=== PATIENT | female | born 1945 | race Two or more races ===

== ENCOUNTER 2019-03-17 14:57 | Inpatient (IN) | payer MEDICARE ==
[2019-03-17] MEDS ORDERED: NALOXONE 0.4 MG/ML 1 ML VIAL IV PRN (21:55)
[2019-03-17] MEDS ORDERED: HYDROmorphone 0.5 MG/0.5 ML SYRINGE IVP PRN (21:57)
[2019-03-17] MEDS ORDERED: HYDROcodone/APAP 5-325MG 1 EACH TAB PO PRN (21:57)
[2019-03-17] MEDS ORDERED: ACETAMINOPHEN TAB 500 MG TAB PO PRN (21:57)
[2019-03-17] MEDS ORDERED: IPRATROPIUM-ALBUTEROL 3 ML NEB INHALATION PRN (21:58)
[2019-03-17] MEDS ORDERED: ALPRAZolam 0.25 MG TAB PO PRN (21:59)
[2019-03-17] MEDS ORDERED: TEMAZEPAM 15 MG CAP PO PRN (21:59)
--- NOTE | 2019-03-17 22:35 | XR ---
EXAM: XR Chest, 1 View CLINICAL HISTORY: ITS.REASON XR Reason: lung ca TECHNIQUE: Frontal view of the chest. COMPARISON: No relevant prior studies available. FINDINGS: Lungs: Complete opacification of the right hemithorax with elevation of the right hemidiaphragm and gastric bubble seen higher than its expected location. Lungs are clear. Left heart margin is obscured. Mediastinum and gladys are obscured. Trachea is grossly unremarkable. Pleural space: Unremarkable. No pneumothorax. Heart: See above. Mediastinum: Unremarkable. Bones/joints: Unremarkable. IMPRESSION: Opacification of the left hemithorax. Differential includes mass, pleural effusion, lung collapse or a combination these findings. Recommend chest CT for further evaluation.
[2019-03-17] MEDS: SODIUM CHLORIDE 0.9% 1,000 ML IV SCH (22:53)
--- NOTE | 2019-03-18 05:39 | HP ---
HISTORY AND PHYSICAL CHIEF COMPLAINTS: Shortness of breath and chest pain. HISTORY OF PRESENT ILLNESS: This 73-year-old woman with a past medical history of multiple medical problems including hypertension, history of COPD, being followed by Dr. Stratton in the outpatient setting is complaining of right-sided chest pain as well as some shortness of breath. Because of increased symptoms, the patient went to [facility]. The patient underwent a CAT scan of the chest which showed COPD with underlying emphysema and pulmonary hypertension and as well as a large left hilar mass with a contiguous mass extending into the left upper lobe and invading the subcarinal aspect to the mediastinum, measures up to approximately 7.3 cm encasing and narrowing of the left main pulmonary artery and proximal lobar arterial branches and cuts off the left mainstem bronchus and resultant complete left lung collapse with moderate to large left pleural effusion was also noted. Multiple 4 or 5 mm pulmonary nodules also noted on the right side. The patient admitted for further evaluation and treatment. There is no history of any fever, rigors. No history of headache, loss of consciousness or seizures at this time. I discussed the case with [facility] ER physician and the patient directly transferred to [facility] for further evaluation and treatment. Pulmonary consultation has been initiated. PAST MEDICAL HISTORY: Hypertension, history of nicotine dependence and history of COPD. MEDICATIONS: Medications are: 1. Norvasc 10 mg p.o. daily. 2. Diovan 160/25 mg p.o. daily. 3. Spiriva 1 puff daily. 4. Lopressor 100 mg p.o. ALLERGIES: Allergies are SULFA. FAMILY HISTORY: No history of heart disease or strokes in the family. SOCIAL HISTORY: Previous history of smoking. No history of current smoking or alcohol intake. REVIEW OF SYSTEMS: ENT: No diminished hearing or diminished vision. CARDIOVASCULAR SYSTEM: No angina RESPIRATORY SYSTEM: As mentioned earlier. GI: No nausea. : No dysuria. NERVOUS SYSTEM: No numbness or weakness. ALLERGY/IMMUNOLOGY: No asthma or hayfever. MUSCULOSKELETAL: As mentioned earlier. HEMATOLOGY/ONCOLOGY: No history of anemia. ENDOCRINE: No history of diabetes or hypothyroidism. CONSTITUTIONAL: As mentioned earlier. DERMATOLOGY: Negative. RHEUMATOLOGY: Negative. PSYCHIATRY: As mentioned earlier. PHYSICAL EXAMINATION: Patient is alert and oriented x3. Pulse is 64, blood pressure 136/76, respiration 20, temperature 98.3, pulse ox 93% on room air. HEENT: Conjunctivae normal. Oral mucosa moist. NECK: No jugular venous distention. No carotid bruit. No lymph node enlargement. CARDIOVASCULAR: S1, S2 muffled. RESPIRATORY: Breath sounds diminished at the bases. Bilateral scattered rhonchi and crackles. Bilateral expiratory rhonchi on left more than right with some markedly on the left side. ABDOMEN: Soft, nontender. No mass palpable. LEGS: No edema. No swelling. NERVOUS SYSTEM: Higher functions as mentioned. Moves all 4 limbs. No focal motor deficit. LYMPHATICS: No lymphadenopathy of the neck, axillae or groin. SKIN: No ulcer, rash or bleeding. JOINTS: No active deforming arthropathy. LABS: Labs are not available at this time. Previous labs are reviewed. ASSESSMENT: 1. Possible left hilar mass with extension. 2. Left lung collapse with left pleural effusion, rule out lung cancer. 3. History of nicotine dependence. 4. History of chronic obstructive pulmonary disease. 5. Hypertension. 6. Obesity with body mass index 39.1. RECOMMENDATIONS AND DISCUSSION: In this 73-year-old woman who presented with multiple complex medical issues, we will monitor the patient closely. Continue the current medications and symptomatic treatment. Will initiate extensive bronchodilator treatment. Otherwise, I would also recommend pulmonary consultation, possible bronchoscopy, biopsy. Repeat chest x- ray, repeat labs. Resume the home medications symptomatic treatment. Prognosis guarded because of multiple complex medical issues. Further recommendations to follow. A copy of dictation forwarded to Dr. Stratton who is the primary physician. MMODL / IJN: [id number] / MTDLeela
[2019-03-18 08:26] LABS: Basophils % (A) 0 %; Eosinophils # (A) 0.4 k/uL (0-0.7); Eosinophils % (A) 4 %; HCT 37.2 % (34.0-46.0); HGB 12.1 gm/dL (11.4-16.0); Lymphocytes # (A) 1.2 k/uL (1.0-4.8); Lymphocytes % (A) 11 %; MCH 29.4 pg (25.0-35.0); MCHC 32.6 g/dL (31.0-37.0); Mean Platelet Volume 6.8; Monocytes # (A) 0.7 k/uL (0-1.0); Monocytes % (A) 6 %; Neutrophils # (A) 7.9 k/uL (1.3-7.7); Neutrophils % (A) 76 %; Platelet Count 481 k/uL (150-450); RBC 4.13 m/uL (3.80-5.40); WBC 10.4 k/uL (3.8-10.6)
[2019-03-18 08:30] LABS: Anion Gap 6 mmol/L; Blood Urea Nitrogen 15 mg/dL (7-17); Calcium 9.1 mg/dL (8.4-10.2); Carbon Dioxide 32 mmol/L (22-30); Chloride 98 mmol/L (98-107); Glucose 107 mg/dL (74-99); Potassium 4.5 mmol/L (3.5-5.1); Sodium 136 mmol/L (137-145)
--- NOTE | 2019-03-18 08:33 | US ---
EXAMINATION TYPE: US chest DATE OF EXAM: 03/18/2019 COMPARISON: Radiograph 03/17/2019 CLINICAL HISTORY: 73-year-old female Markings for thoracentesis by pulmonary staff. SOB, pleural effu joey TECHNIQUE: Targeted ultrasound of the posterior lower bilateral hemithoraces. FINDINGS: EXAM MEASUREMENTS: Right Pleural Effusion pocket size: 0 cm Left Pleural Effusion pocket size: 7.8 cm Left skin surface to fluid distance: 4.4 cm Right side NOT marked Left side marked for possible thoracentesis outside the dept. Pulmonologists are able to review the images in the patient?s EMR. IMPRESSIONS: No pleural effusion on the right. Moderate sized pleural effusion on the left with marking performed. Note that the size of this effusion is not large enough to cause white out of the left chest. A conc urrent underlying process is suspected.
[2019-03-18] MEDS: amLODIPine 10 MG TAB PO SCH (09:19)
[2019-03-18] MEDS: HYDROCHLOROTHIAZIDE 25 MG TAB PO SCH (09:19)
[2019-03-18] MEDS: HEPARIN SODIUM,PORCINE 5,000 UNIT/ML 1 ML VIAL SQ SCH ×2 (09:19→21:34)
[2019-03-18] MEDS: PANTOPRAZOLE 40 MG TABLET PO SCH (09:19)
[2019-03-18] MEDS: METOPROLOL TARTRATE 50 MG TAB PO SCH ×2 (09:19→21:34)
[2019-03-18] MEDS: VALSARTAN 160 MG TAB PO SCH (09:20)
[2019-03-18] MEDS: IPRATROPIUM-ALBUTEROL 3 ML NEB INHALATION SCH ×3 (09:25→21:11)
--- NOTE | 2019-03-18 11:20 | P.CNPUL ---
History of Present Illness Consult date: 03/18/19 Requesting physician: Barbra Diaz Reason for consult: dyspnea, abnormal CXR/CT Chief complaint: Shortness of breath History of present illness: This a very pleasant 73-year-old female patient who follows with Dr. Stratton as her primary care physician. She has a history of hypertension.. She also has a significant smoking history for approximate 50 years but take quit 2 years ago. She does have significant COPD and follows with Dr. Larkin in our office for the same. FEV1 value of 49% of predicted. She's been on Trelegy and albuterol. She was last seen in January 2019. She states she has been having progressive shortness of breath over the past couple of months now. She presented to [facility] with complaints of some right-sided chest discomfort and shortness of breath. Computed tomography scan there revealed underlying emphysema pulmonary hypertension as well as a large left hilar mass with contiguous mass extending into the left upper lobe invading the subcarinal aspect of the mediastinum, measures up to 7.3 cm encasing and narrowing the left main pulmonary artery and proximal lobe arterial branches the left mainstem bronchus with resulting complete left lung collapse. There is also noted moderate to large pleural effusion. Scattered pulmonary nodules on the right side as well. She was transferred here for further evaluation and workup. Ultrasound of the left chest reveals a 7.8 cm fluid pocket. She is seen today in consultation on the oncology floor. She is awake and alert in no acute distress. She is maintaining good O2 saturations in the 90s on room air. She's afebrile. Hemodynamically stable. White count 10.4. Hemoglobin 12.1. Creatinine 0.69. She has been initiated on DuoNeb inhalations. She denies any significant weight loss. No hemoptysis. Review of Systems REVIEW OF SYSTEMS: CONSTITUTIONAL: Denies any recent significant weight loss or weight gain. EYES: Denies change in vision. EARS, NOSE, MOUTH, THROAT: Denies headaches, denies sore throat. CARDIOVASCULAR: Denies chest pain, palpitations or syncopal episodes. RESPIRATORY: Positive for shortness of breath, cough, congestion no hemoptysis. GASTROINTESTINAL: Denies change in appetite, denies abdominal pain GENITOURINARY: Denies hematuria, denies infections. MUSKULOSKELETAL: Denies pain, denies swelling. INTEGUMENTARY: Denies rash, denies eczema. NEUROLOGICAL: Denies recent memory loss, no recent seizure activity. PSYCHIATRIC: Denies anxiety, denies depression. HEMATOLOGIC/LYMPHATIC: Denies anemia, denies enlarged lymph nodes. Past Medical History Past Medical History: Hypertension History of Any Multi-Drug Resistant Organisms: None Reported Past Anesthesia/Blood Transfusion Reactions: No Reported Reaction Smoking Status: Former smoker - Past Family History Sister(s) Family Medical History: No Reported History Medications and Allergies Home Medications Medication Instructions Recorded Confirmed Type Metoprolol Tartrate [Lopressor] 100 mg PO BID 03/17/19 03/17/19 History Tiotropium 18 Mcg/Puff [Spiriva] 1 puff INHALATION RT-DAILY 03/17/19 03/17/19 History Valsartan/Hydrochlorothiazide 1 tab PO DAILY 03/17/19 03/17/19 History [Diovan Hct 160-25 mg Tablet] amLODIPine [Norvasc] 10 mg PO DAILY 03/17/19 03/17/19 History Allergies Allergy/AdvReac Type Severity Reaction Status Date / Time Sulfa (Sulfonamide Allergy Swelling Verified 03/17/19 19:16 Antibiotics) Physical Exam Vitals: Vital Signs Temp Pulse Pulse Resp BP Pulse Ox 03/18/19 09:40 80 03/18/19 09:31 76 03/18/19 04:46 98.3 F 76 18 156/70 96 03/17/19 22:17 20 03/17/19 21:55 94 L 03/17/19 20:39 98.3 F 64 20 136/76 93 L 03/17/19 18:25 98.2 F 66 20 155/96 97 Intake and Output 03/17/19 03/18/19 03/18/19 22:59 06:59 14:59 Intake Total 720 220 360 Balance 720 220 360 Intake: Intake, IV Titration 220 Amount Sodium Chloride 0.9% 1, 120 000 ml @ 20 mls/hr IV . Q24H [facility] Rx#:[id number] cefTRIAXone 1 gm In 100 Sodium Chloride 0.9% 50 ml @ 100 mls/hr IVPB Q24H [facility] Rx#:[id number] Oral 720 360 Other: Voiding Method Toilet # Voids 2 2 Weight 90.718 kg GENERAL EXAM: Alert, active, comfortable in no apparent distress. On room air. HEAD: Normocephalic. EYES: Normal reaction of pupils, equal size. NOSE: Clear with pink turbinates. THROAT: No erythema or exudates. NECK: No masses, no JVD. CHEST: No chest wall deformity. LUNGS: Diminished in the left lung crackles in the base. CVS: S1 and S2 normal with no audible murmur, regular rhythm. ABDOMEN: No hepatosplenomegaly, normal bowel sounds, no guarding or rigidity. SPINE: No scoliosis or deformity SKIN: No rashes CENTRAL NERVOUS SYSTEM: No focal deficits, tone is normal in all 4 extremities. EXTREMITIES: There is no peripheral edema. No clubbing, no cyanosis. Peripheral pulses are intact. Results - Laboratory Findings CBC and BMP: 03/18/19 08:03 03/18/19 08:03 Abnormal lab findings: Abnormal Labs 03/18/19 03/18/19 08:03 08:03 Plt Count 481 H Neutrophils # 7.9 H Sodium 136 L Carbon Dioxide 32 H Glucose 107 H - Diagnostic Findings Chest x-ray: image reviewed CT scan - chest: image reviewed Assessment and Plan Assessment: Impression: #1 Dyspnea secondary to large left hilar mass suspect lung cancer. Computed tomography scan there revealed underlying emphysema, pulmonary hypertension as well as a large left hilar mass with contiguous mass extending into the left upper lobe invading the subcarinal aspect of the mediastinum, measures up to 7.3 cm encasing and narrowing the left main pulmonary artery and proximal lobe arterial branches the left mainstem bronchus with resulting complete left lung collapse. There is also noted moderate to large pleural effusion. Scattered pulmonary nodules on the right side as well. #2 Moderate to large left-sided pleural effusion secondary to above. #3 Chronic obstructive pulmonary disease, FEV1 value of 49% of predicted. #4 50+ year pack per day smoking history, quit 2 years ago. #5 Hypertension. Plan: The patient was seen and evaluated by Dr. Boss. Chest x-ray and CAT scan were reviewed. We will go ahead and perform a left-sided thoracentesis today for staging purposes. Plan for bronchoscopy with biopsies tomorrow. Continue bronchodilators. The patient is aware of her potential diagnoses and is willing to proceed. We will continue to follow and make further recommendations based on her clinical status. I, the cosigning physician, performed a history & physical examination of the patient. Lungs sounds diminished in the left lung. Maintaining good O2 saturations in the 90s on room air. I discussed the assessment and plan of care with my nurse practitioner, Gisele Das. I attest to the above note as dictated by her. Time with Patient: Greater than 30
[2019-03-18] MEDS: IOPAMIDOL-300 CONTRAST 30 ML VIAL (ORAL USE) PO PRN ×2 (12:31→13:50)
--- NOTE | 2019-03-18 15:15 | CT ---
EXAMINATION TYPE: CT abdomen pelvis w con DATE OF EXAM: 03/18/2019 COMPARISON: Outside CT chest 03/17/2019 HISTORY: RUQ pain CT DLP: 1456.1 mGycm Automated exposure control for dose reduction was used. CONTRAST: CT scan of the abdomen pelvis is performed with IV Contrast, patient injected with 100 mL of Isovue 3 00. FINDINGS- LUNG BASES-left lower lobe consolidation and compressive atelectasis with pleural effusion noted. The re are multiple 5 mm or less right-sided lower lobe pulmonary nodules.. LIVER/GB-tiny hypodensity involving the dome of the liver is too small to characterize on axial image 18 measuring less than 5 mm. No gallstones.. PANCREAS- No gross abnormality is seen. SPLEEN- No gross abnormality is seen. ADRENALS- No gross abnormality is seen. KIDNEYS/BLADDER- no hydronephrosis nephrolithiasis or renal mass. BOWEL-Stamps pattern nonspecific. Changes of diverticulosis noted. Nonspecific thickening to the cecu m and right colon wall. LYMPH NODES- No greater than 1cm abdominal or pelvic lymph nodes areappreciated. OSSEOUS STRUCTURES-multilevel hypertrophic and degenerative change of the spine. There is multilevel facet arthropathy.. OTHER- atherosclerotic change of the aorta but no evidence of aneurysm. Soft tissue density in both adnexal regions likely related to atrophic ovaries. Soft tissue emphysema in the anterior abdominal w all likely echogenic. Small fat-containing periumbilical hernia noted. IMPRESSION- 1. There are few scattered 5 mm or less right lower lobe pulmonary nodules which are stable from the recent CT of the chest suspicious for metastases. 2. Tiny hypodensity involving the dome of the liver measures less than 5 mm is too small to character ize but likely benign and could be followed on a short-term 3-6 month basis. 3. No pathologic adenopathy within the abdomen or pelvis. 4. Diverticulosis of the colon. There is regional wall thickening involving the cecum and terminal il eum which may be related to incomplete distention, correlate to exclude mild enterocolitis. If there is concern for mucosal lesion direct visualization could BE obtained.
--- NOTE | 2019-03-18 15:43 | XR ---
EXAMINATION TYPE: XR chest 1V portable DATE OF EXAM: 03/18/2019 COMPARISON: NONE HISTORY: Status post left thoracentesis TECHNIQUE: Single frontal view of the chest is obtained. FINDINGS: There remains complete opacification of the left hemithorax with elevated left hemidiaphra gm. Right lung is clear. Atherosclerotic change aorta. No obvious pneumothorax. Arthropathy of the sh oulders. IMPRESSION: Complete opacification of the left hemithorax.
--- NOTE | 2019-03-18 17:06 | P.CONS ---
History of Present Illness - Reason for Consult Consult date: 03/18/19 New Lung Mass Requesting physician: Barbra Diaz - Chief Complaint Right Sided Chest Pain - History of Present Illness Ms Morgan is a 73 year old female patient who originally presented with complaints of Right sided chest pain and shortness of breath. She presented to [facility], in which they performed a CTA to assess her complaints further. The CT of her Chest revealed her known emphysema, copd, evidence consistent with pulmonary hypertension as well as, Large Left Hilar Mass which showed extension into the [place] and invasion into the subcarinal aspect of the mediastinum approx 7.3 cm in size. Concern of tumor burden narrowing and encasement of the left ma in pulmonary artery and proximal lobar artery branches, which repesented as cutting off the left mainstem bronchus resulting in complete collapse of the left lung with evidence of moderate to severe pleural effusion. ALso mentioned was multiple right pulmonary nodules ranging mostly at a size of 4-5mm Because of the above findings she was transferred to [facility] for further evaluation and medical oncology has been consulted. Review of Systems A 14 point review of systems assessed and completed and all negative except HPI Past Medical History History of Any Multi-Drug Resistant Organisms: None Reported Past Anesthesia/Blood Transfusion Reactions: No Reported Reaction Smoking Status: Former smoker - Past Family History Sister(s) Family Medical History: No Reported History Medications and Allergies Home Medications Medication Instructions Recorded Confirmed Type Metoprolol Tartrate [Lopressor] 100 mg PO BID 03/17/19 03/17/19 History Tiotropium 18 Mcg/Puff [Spiriva] 1 puff INHALATION RT-DAILY 03/17/19 03/17/19 History Valsartan/Hydrochlorothiazide 1 tab PO DAILY 03/17/19 03/17/19 History [Diovan Hct 160-25 mg Tablet] amLODIPine [Norvasc] 10 mg PO DAILY 03/17/19 03/17/19 History Allergies Allergy/AdvReac Type Severity Reaction Status Date / Time Sulfa (Sulfonamide Allergy Swelling Verified 03/17/19 19:16 Antibiotics) Physical Exam Vitals: Vital Signs Temp Pulse Pulse Resp BP Pulse Ox 03/18/19 09:40 80 03/18/19 09:31 76 03/18/19 04:46 98.3 F 76 18 156/70 96 03/17/19 22:17 20 03/17/19 21:55 94 L 03/17/19 20:39 98.3 F 64 20 136/76 93 L 03/17/19 18:25 98.2 F 66 20 155/96 97 Intake and Output 03/17/19 03/18/19 03/18/19 22:59 06:59 14:59 Intake Total 720 220 360 Balance 720 220 360 Intake: Intake, IV Titration 220 Amount Sodium Chloride 0.9% 1, 120 000 ml @ 20 mls/hr IV . Q24H [facility] Rx#:[id number] cefTRIAXone 1 gm In 100 Sodium Chloride 0.9% 50 ml @ 100 mls/hr IVPB Q24H [facility] Rx#:[id number] Oral 720 360 Other: Voiding Method Toilet # Voids 2 2 Weight 90.718 kg Gen: ALert and Oriented, No acute distress Head: NCNT Neck: Supple, trachea midline No palpable adenopathy on exam Lungs: Left lung without lung sounds, expiratory wheeze and mild increased effort Heart Regular Tachy Abdomen: Soft , ND, NT Extremities without rash or lesions, no edema Neuro: NO sensory or motor Deficits Results CBC & Chem 7: 03/18/19 08:03 03/18/19 08:03 Labs: Abnormal Lab Results - Last 24 Hours (Table) 03/18/19 03/18/19 Range/Units 08:03 08:03 Plt Count 481 H (150-450) k/uL Neutrophils # 7.9 H (1.3-7.7) k/uL Sodium 136 L (137-145) mmol/L Carbon Dioxide 32 H (22-30) mmol/L Glucose 107 H (74-99) mg/dL Chest x-ray: report reviewed CT scan - chest: report reviewed Assessment and Plan (1) Lung mass Current Visit: Yes Status: Acute Code(s): R91.8 - OTHER NONSPECIFIC ABNORMAL FINDING OF LUNG FIELD SNOMED Code(s): 694668912 Plan: Assessment and Recommendations: New Large Left Lung Mass: - Pulm is following - Await Pulmonary Recommendations regarding best access for tissue core biopsy - MRI BRain for initial staging and CT scans Abdomen, Pelvis with bone scan ordered - CHeck Liver Function in am Left Moderate to Large PLeural Effusion: - PLan for thoracentesis and send fluid for cytology Multiple Subcentimeter nodules on right lung: - Unknown etiology malignant metastatic disease versus other COPD: - Per Pulmonary Hx: Tobacco Abuse: - Cessation Physician Attest: I have completed the full history and physical and developed the above impression and plan, agree with dictation, dictated as a rovertoibe Rhiannon SOTOP
[2019-03-18 17:15] LABS: Appearance,BF Cloudy; Color,BF Yellow; Nucleated Cells, Body Fluid 2870 /uL; RBC, Body Fluid 1970 /uL
[2019-03-18 17:41] LABS: Mononuclear WBC,Body Fluid 83 %; Polynuclear WBC,Body Fluid 14 %; Total Cells Counted,Body Fluid 100
--- NOTE | 2019-03-18 17:59 | NM ---
EXAMINATION TYPE: NM bone scan whole body DATE OF EXAM: 03/18/2019 HISTORY: Initial staging TECHNIQUE: Department protocol with multiplanar scintigraphic imaging from head to toe. Delayed whole -body scanning was performed following the injection of 20.9 mCi Tc 99m MDP. Images acquired 4 hours post injection. COMPARISON: CT 03/18/2019 FINDINGS: There is a solitary focus of increased radiopharmaceutical activity, located at the vertex of the skull and centered at or just right of midline in the expected position of the posterior right frontal bone. Would suggest further characterization with MRI. Otherwise, the distribution of the radiopharmaceutical activity throughout the skeletal structures an d soft tissues is unremarkable. IMPRESSION: Suspicious skull lesion.
--- NOTE | 2019-03-18 18:43 | PN ---
PROGRESS NOTE DATE OF SERVICE: 03/18/2019 This 73-year-old woman who was admitted with shortness of breath had significantly lung lesions, also. The patient was seen by Dr. Boss. The patient also had a CT scan of the abdomen and pelvis which showed a probably tiny benign opacity in the liver and diverticulosis, some thickening of the cecum and terminal ileum. No chest pain. No palpitations. No fever. Repeat chest x-ray showed complete opacification of the left hemithorax. Dr. Boss is following the patient closely. Left-sided thoracocentesis is being planned at this time. Past medical history reviewed. REVIEW OF SYSTEMS: CARDIOVASCULAR SYSTEM: No angina, palpitations. RESPIRATORY SYSTEM: As mentioned earlier. GI: No nausea, vomiting. : No dysuria or retention. NERVOUS SYSTEM: No numbness, weakness. CURRENT MEDICATIONS: Reviewed. They include: 1. Tylenol 500 mg q.6 p.r.n. 2. [place] 5 mg q.6 p.r.n. 3. DuoNeb q.i.d. and p.r.n. 4. Xanax 0.25 t.i.d. 5. Norvasc 10 mg p.o. daily. 6. Rocephin 1 gram daily. 7. Heparin. 8. HydroDIURIL 25 mg p.o. daily. 9. Dilaudid. 10.Lopressor 100 mg . 11.Protonix. 12.Zestril. 13.Diovan. PHYSICAL EXAMINATION: Patient is alert, oriented x3. The pulse is 51, blood pressure 120/66, respiration 17, temperature 97.3, pulse ox 96% on room air. HEENT: Conjunctivae normal. Oral mucosa moist. NECK: No jugular venous distention. No carotid bruit. No lymph node enlargement. CARDIOVASCULAR SYSTEM: S1, S2 muffled. RESPIRATORY SYSTEM: Breath sounds diminished at the bases, markedly diminished in the left side. A few scattered rhonchi on the right side. ABDOMEN: Soft, non-tender. No mass palpable. LEGS: No edema. No swelling. NERVOUS SYSTEM: Higher functions as mentioned earlier. Moves all 4 limbs. No focal motor or sensory deficit. LYMPHATICS: No lymph node palpable in neck, axillae or groin. SKIN: No ulcer, rash, bleeding. JOINTS: No active deforming arthropathy. LABS: Platelets 481. Sodium 136. ASSESSMENT: 1. Acute left hilar mass with extension. 2. Left lung collapse with left pleural effusion, possibly secondary to lung cancer with malignant pleural effusion. 3. History of nicotine dependence. 4. History of chronic obstructive pulmonary disease. 5. Hypertension. 6. Obesity with body mass index of 39.1. 7. Mild hyponatremia. RECOMMENDATIONS AND DISCUSSION: I recommend to continue current medications, continue with the monitoring, symptomatic treatment. Continue with the bronchodilators. Closely follow with Dr. Boss. Possible thoracocentesis and bronchoscopy with biopsies. Overall prognosis extremely guarded because of multiple complex medical issues. Further recommendations to follow. MMODL / IJN: [id number] / SAMIR
[2019-03-18] MEDS: SODIUM CHLORIDE 0.9% 1,000 ML IV SCH (22:34)
[2019-03-18 23:09] LABS: Total Protein, Body Fluid 3618 mg/dL
--- NOTE | 2019-03-19 06:46 | PCN ---
PROCEDURE NOTE OPERATIVE REPORT: Left-sided thoracentesis. PREOPERATIVE DIAGNOSIS: Left-sided pleural effusion. POSTOPERATIVE DIAGNOSIS: Left-sided pleural effusion. ANESTHESIA USED: 2 mL of 1% lidocaine. PROCEDURE: The patient was placed in a sitting upright position, the area below the left scapula was prepared in a sterile fashion and dressing applied. The area was earlier localized by ultrasound guidance, and it correlated to the 8th intercostal space and tip of the scapula. The area was locally anesthetized. Then a 26-gauge needle was inserted at the same site, advanced toward the pleural space, however, the needle was too short to reach the pleural space. Then a small tiny incision was made at the same site, a standard thoracentesis catheter and needle were used, the needle was inserted at the same site, advanced into the pleural space and as soon as the fluid was obtained and the catheter was advanced off the needle into the pleural space, and the needle was pulled out of the pleural space. Freely flowing fluid was removed, I was able to drain 500 mL of dark yellow fluid from the left pleural space. The procedure was well tolerated, no evidence of any immediate complications. The fluid was sent for different diagnostic studies. Chest x-ray postoperatively showed no evidence of complications, however, the left lung remained basically opacified. Not much improvement noted post thoracentesis. However, the fluid was sent for diagnostic studies, strongly suspicious for malignancy based on the clinical presentation. MMODL / IJN: [id number] /
[2019-03-19] MEDS: IPRATROPIUM-ALBUTEROL 3 ML NEB INHALATION SCH ×3 (08:26→22:22)
[2019-03-19] MEDS: METOPROLOL TARTRATE 50 MG TAB PO SCH ×2 (09:17→22:10)
[2019-03-19] MEDS: VALSARTAN 160 MG TAB PO SCH (09:17)
[2019-03-19] MEDS: HYDROCHLOROTHIAZIDE 25 MG TAB PO SCH (09:17)
[2019-03-19] MEDS: amLODIPine 10 MG TAB PO SCH (09:17)
[2019-03-19] MEDS: PANTOPRAZOLE 40 MG TABLET PO SCH (09:17)
[2019-03-19] MEDS: HEPARIN SODIUM,PORCINE 5,000 UNIT/ML 1 ML VIAL SQ SCH ×2 (09:19→22:11)
[2019-03-19 09:20] LABS: Basophils % (A) 0 %; Eosinophils # (A) 0.5 k/uL (0-0.7); Eosinophils % (A) 4 %; HCT 38.8 % (34.0-46.0); HGB 12.2 gm/dL (11.4-16.0); Lymphocytes # (A) 1.3 k/uL (1.0-4.8); Lymphocytes % (A) 10 %; MCH 28.5 pg (25.0-35.0); MCHC 31.6 g/dL (31.0-37.0); MCV 90.1 fL (80.0-100.0); Mean Platelet Volume 7.1; Monocytes # (A) 0.7 k/uL (0-1.0); Monocytes % (A) 6 %; Neutrophils # (A) 9.8 k/uL (1.3-7.7); Neutrophils % (A) 79 %; Platelet Count 505 k/uL (150-450); RDW 13.8 % (11.5-15.5); WBC 12.4 k/uL (3.8-10.6)
[2019-03-19 09:30] LABS: ALT 16 U/L (9-52); AST 10 U/L (14-36); Albumin 3.4 g/dL (3.5-5.0); Alkaline Phosphatase 65 U/L (38-126); Anion Gap 8 mmol/L; Blood Urea Nitrogen 12 mg/dL (7-17); Calcium 9.5 mg/dL (8.4-10.2); Carbon Dioxide 31 mmol/L (22-30); Chloride 96 mmol/L (98-107); Glucose 99 mg/dL (74-99); Potassium 4.8 mmol/L (3.5-5.1); Sodium 135 mmol/L (137-145); Total Bilirubin 0.6 mg/dL (0.2-1.3); Total Protein 6.9 g/dL (6.3-8.2)
--- NOTE | 2019-03-19 10:56 | P.PN ---
Subjective Progress Note Date: 03/19/19 Principal diagnosis: Dyspnea secondary to a large left hilar mass suspicious for lung cancer This a very pleasant 73-year-old female patient who follows with Dr. Stratton as her primary care physician. She has a history of hypertension.. She also has a significant smoking history for approximate 50 years but take quit 2 years ago. She does have significant COPD and follows with Dr. Larkin in our office for the same. FEV1 value of 49% of predicted. She's been on Trelegy and albuterol. She was last seen in January 2019. She states she has been having progressive shortness of breath over the past couple of months now. She presented to [facility] with complaints of some right-sided chest discomfort and shortness of breath. Computed tomography scan there revealed underlying emphysema pulmonary hypertension as well as a large left hilar mass with contiguous mass extending into the left upper lobe invading the subcarinal aspect of the mediastinum, measures up to 7.3 cm encasing and narrowing the left main pulmonary artery and proximal lobe arterial branches the left mainstem bronchus with resulting complete left lung collapse. There is also noted moderate to large pleural effusion. Scattered pulmonary nodules on the right side as well. She was transferred here for further evaluation and workup. Ultrasound of the left chest reveals a 7.8 cm fluid pocket. She is seen today in consultation on the oncology floor. She is awake and alert in no acute di stress. She is maintaining good O2 saturations in the 90s on room air. She's afebrile. Hemodynamically stable. White count 10.4. Hemoglobin 12.1. Creatinine 0.69. She has been initiated on DuoNeb inhalations. She denies any significant weight loss. No hemoptysis. The patient is seen today the 2017 in follow-up on the regular medical floor. She is awake and alert in no acute distress. She denies any worsening shortness of breath, cough or congestion. She did undergo a thoracentesis of the left chest with 500 mL of fluid returned. Fluid analysis pending. The plan is for bronchoscopy and biopsies today. She is agreeable to the plan. Bone scan revealed a suspicious skull lesion located at the vertex of the skull. MRI of the brain is pending. Objective - Vital Signs Vital signs: Vital Signs Temp 99.1 F 03/19/19 04:47 Pulse 62 03/19/19 04:47 Resp 18 03/19/19 04:47 BP 123/74 03/19/19 04:47 Pulse Ox 96 03/19/19 04:47 Intake & Output 03/18/19 03/19/19 03/19/19 18:59 06:59 18:59 Intake Total 1340 210 Balance 1340 210 Intake: Intake, IV Titration 160 210 Amount Sodium Chloride 0.9% 1, 160 160 000 ml @ 20 mls/hr IV . Q24H [facility] Rx#:[id number] cefTRIAXone 1 gm In 50 Sodium Chloride 0.9% 50 ml @ 100 mls/hr IVPB Q24H [facility] Rx#:[id number] Oral 1180 Other: Voiding Method Toilet Toilet # Voids 3 1 - Exam GENERAL EXAM: Alert, comfortable in no apparent distress. On room air. HEAD: Normocephalic. EYES: Normal reaction of pupils, equal size. NOSE: Clear with pink turbinates. THROAT: No erythema or exudates. NECK: No masses, no JVD. CHEST: No chest wall deformity. LUNGS: Diminished in the left lung crackles in the base. CVS: S1 and S2 normal with no audible murmur, regular rhythm. ABDOMEN: No hepatosplenomegaly, normal bowel sounds, no guarding or rigidity. SPINE: No scoliosis or deformity SKIN: No rashes CENTRAL NERVOUS SYSTEM: No focal deficits, tone is normal in all 4 extremities. EXTREMITIES: There is no peripheral edema. No clubbing, no cyanosis. Peripheral pulses are intact. - Labs CBC & Chem 7: 03/19/19 08:36 03/19/19 08:36 Labs: Abnormal Lab Results - Last 24 Hours (Table) 03/19/19 03/19/19 Range/Units 08:36 08:36 WBC 12.4 H (3.8-10.6) k/uL Plt Count 505 H (150-450) k/uL Neutrophils # 9.8 H (1.3-7.7) k/uL Sodium 135 L (137-145) mmol/L Chloride 96 L (98-107) mmol/L Carbon Dioxide 31 H (22-30) mmol/L AST 10 L (14-36) U/L Albumin 3.4 L (3.5-5.0) g/dL Microbiology - Last 24 Hours (Table) 03/18/19 15:15 Gram Stain - Preliminary Pleural Fluid Body Fluid Culture - Preliminary Assessment and Plan Assessment: Impression: #1 Dyspnea secondary to large left hilar mass suspect lung cancer. Computed tomography scan there revealed underlying emphysema, pulmonary hypertension as well as a large left hilar mass with contiguous mass extending into the left upper lobe invading the subcarinal aspect of the mediastinum, measures up to 7.3 cm encasing and narrowing the left main pulmonary artery and proximal lobe arterial branches the left mainstem bronchus with resulting complete left lung collapse. There is also noted moderate to large pleural effusion. Scattered pulmonary nodules on the right side as well. #2 Moderate to large left-sided pleural effusion secondary to above. Status post thoracentesis with 500 mL removed. Fluid analysis pending. #3 Suspicious skull lesion at the vertex of the skull noted on bone scan, MRI of the brain pending. #4 Chronic obstructive pulmonary disease, FEV1 value of 49% of predicted. #5 50+ year pack per day smoking history, quit 2 years ago. #6 Hypertension. Plan: The patient was seen and evaluated by Dr. Boss. Chest x-ray continues to show nearly complete opacification of the left lung. Status post thoracentesis with 500 ML's removed. Fluid analysis pending. Plan for bronchoscopy with biopsies today. Suspicious skull lesion noted on bone scan. MRI of the brain is pending. We will continue to follow and make further recommendations based on her clinical status. I, the cosigning physician, performed a history & physical examination of the patient. Lungs sounds diminished in the left lung. Maintaining good O2 saturations in the 90s on room air. I discussed the assessment and plan of care with my nurse practitioner, Gisele Das. I attest to the above note as dictated by her.
[2019-03-19] MEDS ORDERED: GLYCOPYRROLATE 0.2 MG/ML 2 ML VIAL ONE (12:34)
[2019-03-19] MEDS ORDERED: PROPOFOL 10 MG/ML 20 ML VIAL IV ONE (12:34)
[2019-03-19] MEDS ORDERED: LIDOCAINE 1% INJ 10MG/ML (20 ML MDV) ONE (12:34)
[2019-03-19] MEDS ORDERED: MIDAZOLAM 2 MG/2 ML VIAL ONE (12:34)
[2019-03-19] MEDS ORDERED: IV FLUID CONTINUATION 1,000 ML IV ONE (12:35)
[2019-03-19] MEDS ORDERED: EPINEPHrine 10 ML SYRINGE (0.1 MG/ML) MISCELLANE ONE (13:02)
[2019-03-19] MEDS ORDERED: LIDOCAINE 2% INJ 20 MG/ML INTRATRACH ONE (13:02)
--- NOTE | 2019-03-19 14:00 | P.PN ---
Subjective Progress Note Date: 03/19/19 Principal diagnosis: New Lung Mass Unable to tolerate MRI of brain today as she is claustrophobic Objective - Vital Signs Vital signs: Vital Signs Temp 98.5 F 03/19/19 11:45 Pulse 64 03/19/19 11:45 Resp 16 03/19/19 11:45 BP 105/63 03/19/19 11:45 Pulse Ox 95 03/19/19 11:45 Intake & Output 03/18/19 03/19/19 03/19/19 18:59 06:59 18:59 Intake Total 1340 210 100 Balance 1340 210 100 Intake: IV 100 Intake, IV Titration 160 210 Amount Sodium Chloride 0.9% 1, 160 160 000 ml @ 20 mls/hr IV . Q24H [facility] Rx#:[id number] cefTRIAXone 1 gm In 50 Sodium Chloride 0.9% 50 ml @ 100 mls/hr IVPB Q24H [facility] Rx#:[id number] Oral 1180 Other: Voiding Method Toilet Toilet # Voids 3 1 - Exam Gen: ALert and Oriented, No acute distress Head: NCNT Neck: Supple, trachea midline No palpable adenopathy on exam Lungs: Left lung without lung sounds, expiratory wheeze and mild increased effort Heart Regular Tachy Abdomen: Soft , ND, NT Extremities without rash or lesions, no edema Neuro: NO sensory or motor Deficits - Labs CBC & Chem 7: 03/19/19 08:36 03/19/19 08:36 Labs: Abnormal Lab Results - Last 24 Hours (Table) 03/19/19 03/19/19 Range/Units 08:36 08:36 WBC 12.4 H (3.8-10.6) k/uL Plt Count 505 H (150-450) k/uL Neutrophils # 9.8 H (1.3-7.7) k/uL Sodium 135 L (137-145) mmol/L Chloride 96 L (98-107) mmol/L Carbon Dioxide 31 H (22-30) mmol/L AST 10 L (14-36) U/L Albumin 3.4 L (3.5-5.0) g/dL Microbiology - Last 24 Hours (Table) 03/18/19 15:15 Gram Stain - Preliminary Pleural Fluid Body Fluid Culture - Preliminary Assessment and Plan (1) Lung mass Current Visit: Yes Status: Acute Code(s): R91.8 - OTHER NONSPECIFIC ABNORMAL FINDING OF LUNG FIELD SNOMED Code(s): 120936748 Plan: Assessment and Recommendations: New Large Left Lung Mass: - Pulm is following - Await Pulmonary Recommendations regarding best access for tissue core biopsy - MRI BRain for initial staging was unsuccessfull due to anxiety, ativan ordered and reattempting - Suspicious lesion right posterior frontal part of skull on bone scan, difficult to differentiate - Small lesion on hepatic dome felt to be benign, no other evidence of metastatic disease mentioned on CT Scans - CHeck Liver Function in am Left Moderate to Large PLeural Effusion: - PLan for thoracentesis and send fluid for cytology Multiple Subcentimeter nodules on right lung: - Unknown etiology malignant metastatic disease versus other COPD: - Per Pulmonary Hx: Tobacco Abuse: - Cessation PLan: - Status Post Bronchoscopy await Path - Attempt MRI of brain in am, Ativan Prior and may repeat times one if needed - Thoroughly discussed MRI, Bone Scan and CTs with patient today, all questions answered - Discussed with Dr. Diaz - Status POst THoracentesis today Physician Attest: I have completed the full history and physical and developed the above impression and plan, agree with dictation, dictated as a rovertoibe Rhiannon SOTOP
[2019-03-19 17:14] LABS: Appearance,BF Blood Tinged; Color,BF Red
[2019-03-19 17:15] LABS: Nucleated Cells, Body Fluid 889 /uL; RBC, Body Fluid 9100 /uL
[2019-03-19 17:50] LABS: Mononuclear WBC,Body Fluid 13 %; Polynuclear WBC,Body Fluid 82 %; Total Cells Counted,Body Fluid 100
--- NOTE | 2019-03-19 18:46 | PN ---
PROGRESS NOTE DATE OF SERVICE: 03/19/2019 This 73-year-old woman was admitted to the hospital with acute left hilar mass with extension also had significant pleural effusion. The patient apparently underwent a bronchoscopy and as well as the pleural fluid aspiration. Dr. Boss is following the patient closely. No chest pain. No palpitations. No fever. PHYSICAL EXAM: Alert and oriented x2. Pulse 64. Blood pressure 105/60, respirations 16, temperature 98.4, pulse ox 94% on room air. HEENT: Conjunctivae normal. NECK: No jugular venous distention. CARDIOVASCULAR SYSTEM: S1, S2 muffled. RESPIRATIONS: Sounds markedly diminished on the right side. ABDOMEN: Soft, nontender. No mass palpable. LEGS: No edema. No swelling. CENTRAL NERVOUS SYSTEM: No focal deficits. LABS: WBC 12.4, hemoglobin 12.2, sodium 134, potassium 4.8. The pleural fluid preliminary reports available. Final cultures are pending at this time. ASSESSMENT: 1. Acute left hilar mass with extension possible lung cancer status post bronchoscopy and biopsy. 2. Left lung collapse with left pleural effusion possibly secondary to lung cancer with malignant pleural effusion. 3. Status post left thoracocentesis. 4. History of nicotine dependence. 5. History of chronic obstructive pulmonary disease. 6. Hypertension. 7. Obesity with body mass index of 39.1. 8. Mild hyponatremia. RECOMMENDATIONS AND DISCUSSION: This 73-year-old woman who presented with multiple complex medical issues, at this time I recommend to continue current management and continue symptomatic treatment. The patient had abdominal pelvis CAT scan which showed a few scattered nodules and thickening of the intestine. Bone scan was also done yesterday which showed suspicious skull lesions. I would also recommend a CT scan of the brain and continue to follow with Hematology/Oncology and Pulmonary. Await biopsies. Prognosis guarded because of multiple complex medical issues. Further recommendations to follow. MMODL / IJN: [id number] /
--- NOTE | 2019-03-19 20:31 | OP ---
OPERATIVE REPORT OPERATIVE PROCEDURE: Bronchoscopy, endobronchial biopsies of left mainstem endobronchial tumor, brushings of left mainstem endobronchial tumor, and washings of left mainstem endobronchial tumor. PREOPERATIVE DIAGNOSIS: Left hilar mass, completely occluding the left mainstem bronchus. 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 POSTOPERATIVE DIAGNOSIS: Left hilar mass, completely occluding the left mainstem bronchus. 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 ANESTHESIA USED: IV conscious sedation. PROCEDURE DESCRIPTION: The patient was prepared according to the bronchoscopy protocol. Oxygen was applied via nasal cannula. The patient was placed in a supine position, and we monitored the oxygen saturation continuously. Blood pressure was intermittently monitored. Cardiac rhythm was continuously monitored. After adequate IV conscious sedation, the left naris was anesthetized with topical lidocaine. Then the bronchoscope was advanced through the left naris down to the area of the vocal cords. The vocal cords were noted to be patent. Lidocaine was applied over the vocal cords. The bronchoscope was advanced further down to the trachea. The trachea was noted to be normal. However, as we reached the sayda, there was clearly a large endobronchial cauliflower-like lesion obstructing the proximal portion of the left mainstem bronchus, less than 0.5 cm from the sayda. Right side was examined. No evidence of any endobronchial tumors or pathology was noted on the right side. Then, after taking pictures of the left mainstem endobronchial tumor, multiple biopsies/endobronchial biopsies were done from the left mainstem endobronchial tumor. Washings were also done, and brushings were done. The procedure was well tolerated. No evidence of any immediate complications. There was hardly any blood loss; however, there was minimal oozing on the surface of the endobronchial tumor. Hence epinephrine was locally instilled over the biopsy site. No evidence of any significant bleeding. The procedure was well tolerated, and no complications. MMODL / IJN: [id number] /
[2019-03-19] MEDS: SODIUM CHLORIDE 0.9% 1,000 ML IV SCH (22:37)
[2019-03-20] MEDS: IPRATROPIUM-ALBUTEROL 3 ML NEB INHALATION SCH ×3 (07:14→20:24)
[2019-03-20] MEDS: PANTOPRAZOLE 40 MG TABLET PO SCH (07:43)
[2019-03-20] MEDS: METOPROLOL TARTRATE 50 MG TAB PO SCH ×2 (07:43→22:18)
[2019-03-20] MEDS: HYDROCHLOROTHIAZIDE 25 MG TAB PO SCH (07:44)
[2019-03-20] MEDS: HEPARIN SODIUM,PORCINE 5,000 UNIT/ML 1 ML VIAL SQ SCH ×2 (07:44→22:18)
[2019-03-20] MEDS: VALSARTAN 160 MG TAB PO SCH (07:44)
[2019-03-20] MEDS: amLODIPine 10 MG TAB PO SCH (07:44)
[2019-03-20 09:06] LABS: Basophils % (A) 0 %; Eosinophils # (A) 0.4 k/uL (0-0.7); Eosinophils % (A) 3 %; HCT 40.4 % (34.0-46.0); HGB 12.9 gm/dL (11.4-16.0); Lymphocytes # (A) 1.2 k/uL (1.0-4.8); Lymphocytes % (A) 9 %; MCHC 31.8 g/dL (31.0-37.0); Mean Platelet Volume 7.1; Monocytes # (A) 0.6 k/uL (0-1.0); Monocytes % (A) 5 %; Neutrophils # (A) 11.2 k/uL (1.3-7.7); Neutrophils % (A) 82 %; Platelet Count 496 k/uL (150-450); RBC 4.45 m/uL (3.80-5.40); RDW 13.8 % (11.5-15.5); WBC 13.7 k/uL (3.8-10.6)
[2019-03-20 09:39] LABS: Anion Gap 9 mmol/L; Blood Urea Nitrogen 15 mg/dL (7-17); Calcium 9.5 mg/dL (8.4-10.2); Carbon Dioxide 29 mmol/L (22-30); Chloride 95 mmol/L (98-107); Glucose 118 mg/dL (74-99); Potassium 3.9 mmol/L (3.5-5.1); Sodium 133 mmol/L (137-145)
--- NOTE | 2019-03-20 11:42 | P.PN ---
Subjective Progress Note Date: 03/20/19 Principal diagnosis: Dyspnea secondary to a large left hilar mass suspicious for lung cancer This a very pleasant 73-year-old female patient who follows with Dr. Stratton as her primary care physician. She has a history of hypertension.. She also has a significant smoking history for approximate 50 years but take quit 2 years ago. She does have significant COPD and follows with Dr. Larkin in our office for the same. FEV1 value of 49% of predicted. She's been on Trelegy and albuterol. She was last seen in January 2019. She states she has been having progressive shortness of breath over the past couple of months now. She presented to [facility] with complaints of some right-sided chest discomfort and shortness of breath. Computed tomography scan there revealed underlying emphysema pulmonary hypertension as well as a large left hilar mass with contiguous mass extending into the left upper lobe invading the subcarinal aspect of the mediastinum, measures up to 7.3 cm encasing and narrowing the left main pulmonary artery and proximal lobe arterial branches the left mainstem bronchus with resulting complete left lung collapse. There is also noted moderate to large pleural effusion. Scattered pulmonary nodules on the right side as well. She was transferred here for further evaluation and workup. Ultrasound of the left chest reveals a 7.8 cm fluid pocket. She is seen today in consultation on the oncology floor. She is awake and alert in no acute di stress. She is maintaining good O2 saturations in the 90s on room air. She's afebrile. Hemodynamically stable. White count 10.4. Hemoglobin 12.1. Creatinine 0.69. She has been initiated on DuoNeb inhalations. She denies any significant weight loss. No hemoptysis. The patient is seen today Mar 19 2019 in follow-up on the regular medical floor. She is awake and alert in no acute distress. She denies any worsening shortness of breath, cough or congestion. She did undergo a thoracentesis of the left chest with 500 mL of fluid returned. Fluid analysis pending. The plan is for bronchoscopy and biopsies today. She is agreeable to the plan. Bone scan revealed a suspicious skull lesion located at the vertex of the skull. MRI of the brain is pending. The patient is seen today in 03/20/2019 in follow-up on the regular medical floor. She is currently sitting up at the bedside. Awake and alert in no acute distress. She is maintaining good O2 saturations in the 90s on room air. She's afebrile. Hemodynamically stable. She did undergo bronchoscopy with biopsies by Dr. Boss yesterday. Pathology is pending. Cultures pending. Pathology and cultures pending on thoracentesis fluid from the previous day. MRI of the brain is pending. White count 13.7. Creatinine 0.71. Currently on ceftriaxone. Objective - Vital Signs Vital signs: Vital Signs Temp 98.2 F 03/20/19 04:58 Pulse 75 03/20/19 04:58 Resp 22 03/20/19 04:58 BP 116/83 03/20/19 04:58 Pulse Ox 95 03/20/19 04:58 Intake & Output 03/19/19 03/20/19 03/20/19 18:59 06:59 18:59 Intake Total 700 Balance 700 Intake: IV 100 Intake, IV Titration 240 Amount Sodium Chloride 0.9% 1, 240 000 ml @ 20 mls/hr IV . Q24H [facility] Rx#:[id number] Oral 360 Other: Voiding Method Toilet Toilet Toilet # Voids 1 1 - Exam GENERAL EXAM: Alert, comfortable in no apparent distress. On room air. HEAD: Normocephalic. EYES: Normal reaction of pupils, equal size. NOSE: Clear with pink turbinates. THROAT: No erythema or exudates. NECK: No masses, no JVD. CHEST: No chest wall deformity. LUNGS: Diminished in the left lung crackles in the base. Diminished left lung. CVS: S1 and S2 normal with no audible murmur, regular rhythm. ABDOMEN: No hepatosplenomegaly, normal bowel sounds, no guarding or rigidity. SPINE: No scoliosis or deformity SKIN: No rashes CENTRAL NERVOUS SYSTEM: No focal deficits, tone is normal in all 4 extremities. EXTREMITIES: There is no peripheral edema. No clubbing, no cyanosis. Peripheral pulses are intact. - Labs CBC & Chem 7: 03/20/19 08:21 03/20/19 08:21 Labs: Abnormal Lab Results - Last 24 Hours (Table) 03/20/19 03/20/19 Range/Units 08:21 08:21 WBC 13.7 H (3.8-10.6) k/uL Plt Count 496 H (150-450) k/uL Neutrophils # 11.2 H (1.3-7.7) k/uL Sodium 133 L (137-145) mmol/L Chloride 95 L (98-107) mmol/L Glucose 118 H (74-99) mg/dL Microbiology - Last 24 Hours (Table) 03/19/19 12:45 Gram Stain - Preliminary Bronchial Washings - Left Bronchial Washings Culture - Preliminary 03/18/19 15:15 Gram Stain - Preliminary Pleural Fluid Body Fluid Culture - Preliminary Assessment and Plan Assessment: Impression: #1 Dyspnea secondary to large left hilar mass suspect lung cancer. Computed tomography scan there revealed underlying emphysema, pulmonary hypertension as well as a large left hilar mass with contiguous mass extending into the left upper lobe invading the subcarinal aspect of the mediastinum, measures up to 7.3 cm encasing and narrowing the left main pulmonary artery and proximal lobe arterial branches the left mainstem bronchus with resulting complete left lung collapse. There is also noted moderate to large pleural effusion. Scattered pulmonary nodules on the right side as well. #2 Moderate to large left-sided pleural effusion secondary to above. Status post thoracentesis with 500 mL removed. Fluid analysis pending. #3 Suspicious skull lesion at the vertex of the skull noted on bone scan, MRI of the brain pending. #4 Chronic obstructive pulmonary disease, FEV1 value of 49% of predicted. #5 50+ year pack per day smoking history, quit 2 years ago. #6 Hypertension. Plan: The patient was seen and evaluated by Dr. Boss. The patient currently remains stable from the pulmonary standpoint. On room air. Pathology pending on bronchial biopsies and pleural fluid still. Cultures pending. Suspicious skull lesion noted on bone scan. MRI of the brain is pending. We will continue to follow and make further recommendations based on her clinical status. I, the cosigning physician, performed a history & physical examination of the patient. Lungs sounds diminished in the left lung. Maintaining good O2 saturations in the 90s on room air. I discussed the assessment and plan of care with my nurse practitioner, Gisele Das. I attest to the above note as dictated by her.
[2019-03-20] MEDS ORDERED: LORazepam 2 MG/ML INJ IV STA (13:29)
--- NOTE | 2019-03-20 14:04 | P.PN ---
Subjective Patient is admitted for left hilar mass left-sided pleural effusion and shortness of breath secondary to left-sided pleural effusion patient and the consistency pneumonia 500 mL of fluid and patient underwent bronchoscopy and biopsy. Patient shortness of breath resolved patient is clinically doing well now. Patient will undergo an MRI today to rule out any brain metastasis from her possible pulmonary malignancy. Constitutional: Denied any fatigue denied any fever. Cardio vascular: denied any chest pain, palpitations Gastrointestinal denied any nausea vomiting Pulmonary: Denied any shortness of breath cough Neurologic denied any new focal deficits All inpatient medications were reviewed and appropriate changes in these medications as dictated in the interval history and assessment and plan. Objective - Vital Signs Vital signs: Vital Signs Temp 98.3 F 03/20/19 11:19 Pulse 65 03/20/19 11:19 Resp 16 03/20/19 11:19 BP 99/60 03/20/19 11:19 Pulse Ox 96 03/20/19 11:19 Intake & Output 03/19/19 03/20/19 03/20/19 18:59 06:59 18:59 Intake Total 700 Balance 700 Intake: IV 100 Intake, IV Titration 240 Amount Sodium Chloride 0.9% 1, 240 000 ml @ 20 mls/hr IV . Q24H [facility] Rx#:[id number] Oral 360 Other: Voiding Method Toilet Toilet Toilet # Voids 1 1 - Exam PHYSICAL EXAMINATION: GENERAL: The patient is alert and oriented x3, not in any acute distress. Well developed, well nourished. HEENT: Pupils are round and equally reacting to light. EOMI. No scleral icterus. No conjunctival pallor. Normocephalic, atraumatic. No pharyngeal erythema. No thyromegaly. CARDIOVASCULAR: S1 and S2 present. No murmurs, rubs, or gallops. PULMONARY: Chest is clear to auscultation, no wheezing or crackles. ABDOMEN: Soft, nontender, nondistended, normoactive bowel sounds. No palpable organomegaly. MUSCULOSKELETAL: No joint swelling or deformity. EXTREMITIES: No cyanosis, clubbing, or pedal edema. NEUROLOGICAL: Gross neurological examination did not reveal any focal deficits. SKIN: No rashes. - Labs CBC & Chem 7: 03/20/19 08:21 03/20/19 08:21 Labs: Abnormal Lab Results - Last 24 Hours (Table) 03/20/19 03/20/19 Range/Units 08:21 08:21 WBC 13.7 H (3.8-10.6) k/uL Plt Count 496 H (150-450) k/uL Neutrophils # 11.2 H (1.3-7.7) k/uL Sodium 133 L (137-145) mmol/L Chloride 95 L (98-107) mmol/L Glucose 118 H (74-99) mg/dL Microbiology - Last 24 Hours (Table) 03/19/19 12:45 Gram Stain - Preliminary Bronchial Washings - Left Bronchial Washings Culture - Preliminary 03/18/19 15:15 Gram Stain - Preliminary Pleural Fluid Body Fluid Culture - Preliminary Assessment and Plan Plan: Shortness of breath secondary to left-sided pleural effusion status post redness of 500 mL patient had a left hilar mass which was biopsied -Possible lung cancer -Rule out metastatic disease to brain -COPD without any significant acute exacerbation FEV1 is 49% patient is being treated for tracheobronchitis at this time -Hypertension
--- NOTE | 2019-03-20 15:22 | P.PN ---
Subjective Progress Note Date: 03/20/19 Principal diagnosis: New Lung Mass Status post Bronch with biopsy 03/19/19 and Status post Thoracentesis 500cc off 03/19/19, planning MRI brain today Objective - Vital Signs Vital signs: Vital Signs Temp 98.3 F 03/20/19 11:19 Pulse 65 03/20/19 11:19 Resp 16 03/20/19 11:19 BP 99/60 03/20/19 11:19 Pulse Ox 96 03/20/19 11:19 Intake & Output 03/19/19 03/20/19 03/20/19 18:59 06:59 18:59 Intake Total 700 120 Balance 700 120 Intake: IV 100 Intake, IV Titration 240 120 Amount Sodium Chloride 0.9% 1, 240 120 000 ml @ 20 mls/hr IV . Q24H [facility] Rx#:[id number] Oral 360 0 Other: Voiding Method Toilet Toilet Toilet # Voids 1 1 1 - Exam Gen: ALert and Oriented, No acute distress Head: NCNT Neck: Supple, trachea midline No palpable adenopathy on exam Lungs: Left lung without lung sounds, expiratory wheeze and mild increased effort Heart Regular Tachy Abdomen: Soft , ND, NT Extremities without rash or lesions, no edema Neuro: NO sensory or motor Deficits - Labs CBC & Chem 7: 03/20/19 08:21 03/20/19 08:21 Labs: Abnormal Lab Results - Last 24 Hours (Table) 03/20/19 03/20/19 Range/Units 08:21 08:21 WBC 13.7 H (3.8-10.6) k/uL Plt Count 496 H (150-450) k/uL Neutrophils # 11.2 H (1.3-7.7) k/uL Sodium 133 L (137-145) mmol/L Chloride 95 L (98-107) mmol/L Glucose 118 H (74-99) mg/dL Microbiology - Last 24 Hours (Table) 03/19/19 12:45 Gram Stain - Preliminary Bronchial Washings - Left Bronchial Washings Culture - Preliminary 03/18/19 15:15 Gram Stain - Preliminary Pleural Fluid Body Fluid Culture - Preliminary Assessment and Plan (1) Lung mass Current Visit: Yes Status: Acute Code(s): R91.8 - OTHER NONSPECIFIC ABNORMAL FINDING OF LUNG FIELD SNOMED Code(s): 240003237 Plan: Assessment and Recommendations: New Large Left Lung Mass: - Pulm is following - Await Pulmonary Recommendations regarding best access for tissue core biopsy - MRI BRain for initial staging was unsuccessfull due to anxiety, ativan ordered and reattempting - Suspicious lesion right posterior frontal part of skull on bone scan, difficult to differentiate - Small lesion on hepatic dome felt to be benign, no other evidence of metastatic disease mentioned on CT Scans - Patient agreed to MRI Brain with pre-medication. - Status Post Bronchoscopy - 03/19/19 - with Biopsy awaith Pathology Left Moderate to Large PLeural Effusion: - Status Post 500cc 03/19/19 - Cytology Pending Multiple Subcentimeter nodules on right lung: - Unknown etiology malignant metastatic disease versus other COPD: - Per Pulmonary Hx: Tobacco Abuse: - Cessation PLan: - Await MRI Brain - Await results of Pathology - Will continue to follow - Encourage patient to get up and out pf bed Physician Attest: I have completed the full history and physical and developed the above impression and plan, agree with dictation, dictated as a scribe Rhiannon SOTOP
[2019-03-20] MEDS: SODIUM CHLORIDE 0.9% 1,000 ML IV SCH (22:23)
[2019-03-21] MEDS: HEPARIN SODIUM,PORCINE 5,000 UNIT/ML 1 ML VIAL SQ SCH (07:17)
[2019-03-21] MEDS: VALSARTAN 160 MG TAB PO SCH (07:17)
[2019-03-21] MEDS: METOPROLOL TARTRATE 50 MG TAB PO SCH (07:17)
[2019-03-21] MEDS: PANTOPRAZOLE 40 MG TABLET PO SCH (07:17)
[2019-03-21] MEDS: IPRATROPIUM-ALBUTEROL 3 ML NEB INHALATION SCH (07:23)
[2019-03-21 08:39] LABS: Basophils # (A) 0.1 k/uL (0-0.2); Basophils % (A) 0 %; Eosinophils # (A) 0.5 k/uL (0-0.7); Eosinophils % (A) 4 %; HCT 38.3 % (34.0-46.0); HGB 12.3 gm/dL (11.4-16.0); Lymphocytes # (A) 1.1 k/uL (1.0-4.8); Lymphocytes % (A) 10 %; MCH 29.2 pg (25.0-35.0); MCHC 32.2 g/dL (31.0-37.0); MCV 90.9 fL (80.0-100.0); Mean Platelet Volume 6.7; Monocytes # (A) 0.7 k/uL (0-1.0); Monocytes % (A) 6 %; Neutrophils # (A) 8.9 k/uL (1.3-7.7); Neutrophils % (A) 78 %; Platelet Count 443 k/uL (150-450); RBC 4.21 m/uL (3.80-5.40); RDW 13.7 % (11.5-15.5); WBC 11.4 k/uL (3.8-10.6)
[2019-03-21 09:07] LABS: Anion Gap 9 mmol/L; Blood Urea Nitrogen 17 mg/dL (7-17); Calcium 9.1 mg/dL (8.4-10.2); Carbon Dioxide 29 mmol/L (22-30); Chloride 94 mmol/L (98-107); Glucose 92 mg/dL (74-99); Potassium 3.9 mmol/L (3.5-5.1); Sodium 132 mmol/L (137-145)
[2019-03-21] MEDS ORDERED: IPRATROPIUM-ALBUTEROL 3 ML NEB INHALATION PRN (10:38)
[2019-03-21 12:07] VITALS: BP 94/55; PULSE 58; RESP 17; TEMP 98.1
--- NOTE | 2019-03-21 12:38 | P.PN ---
Subjective Progress Note Date: 03/21/19 Principal diagnosis: Dyspnea secondary to a large left hilar mass suspicious for lung cancer This a very pleasant 73-year-old female patient who follows with Dr. Stratton as her primary care physician. She has a history of hypertension.. She also has a significant smoking history for approximate 50 years but take quit 2 years ago. She does have significant COPD and follows with Dr. Larkin in our office for the same. FEV1 value of 49% of predicted. She's been on Trelegy and albuterol. She was last seen in January 2019. She states she has been having progressive shortness of breath over the past couple of months now. She presented to [facility] with complaints of some right-sided chest discomfort and shortness of breath. Computed tomography scan there revealed underlying emphysema pulmonary hypertension as well as a large left hilar mass with contiguous mass extending into the left upper lobe invading the subcarinal aspect of the mediastinum, measures up to 7.3 cm encasing and narrowing the left main pulmonary artery and proximal lobe arterial branches the left mainstem bronchus with resulting complete left lung collapse. There is also noted moderate to large pleural effusion. Scattered pulmonary nodules on the right side as well. She was transferred here for further evaluation and workup. Ultrasound of the left chest reveals a 7.8 cm fluid pocket. She is seen today in consultation on the oncology floor. She is awake and alert in no acute di stress. She is maintaining good O2 saturations in the 90s on room air. She's afebrile. Hemodynamically stable. White count 10.4. Hemoglobin 12.1. Creatinine 0.69. She has been initiated on DuoNeb inhalations. She denies any significant weight loss. No hemoptysis. The patient is seen today Mar 19 2019 in follow-up on the regular medical floor. She is awake and alert in no acute distress. She denies any worsening shortness of breath, cough or congestion. She did undergo a thoracentesis of the left chest with 500 mL of fluid returned. Fluid analysis pending. The plan is for bronchoscopy and biopsies today. She is agreeable to the plan. Bone scan revealed a suspicious skull lesion located at the vertex of the skull. MRI of the brain is pending. The patient is seen today in 03/20/2019 in follow-up on the regular medical floor. She is currently sitting up at the bedside. Awake and alert in no acute distress. She is maintaining good O2 saturations in the 90s on room air. She's afebrile. Hemodynamically stable. She did undergo bronchoscopy with biopsies by Dr. Boss yesterday. Pathology is pending. Cultures pending. Pathology and cultures pending on thoracentesis fluid from the previous day. MRI of the brain is pending. White count 13.7. Creatinine 0.71. Currently on ceftriaxone. The patient is seen today 03/21/2019 in follow-up on the regular medical floor. She is awake and alert in no acute distress. She denies any worsening shortness of breath, cough or congestion. She's been refusing her updraft treatments. She remains in the 90s on room air. She was unable to tolerate an MRI of the brain. 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 Pleural fluid was negative. Objective - Vital Signs Vital signs: Vital Signs Temp 98.1 F 03/21/19 12:05 Pulse 58 L 03/21/19 12:05 Resp 17 03/21/19 12:05 BP 94/55 03/21/19 12:05 Pulse Ox 97 03/21/19 12:05 Intake & Output 03/20/19 03/21/19 03/21/19 18:59 06:59 18:59 Intake Total 738 677 4292 Balance 234 108 6014 Intake: Intake, IV Titration 120 50 50 Amount Sodium Chloride 0.9% 1, 120 000 ml @ 20 mls/hr IV . Q24H [facility] Rx#:[id number] cefTRIAXone 1 gm In 50 50 Sodium Chloride 0.9% 50 ml @ 100 mls/hr IVPB Q24H [facility] Rx#:[id number] Oral 0 50 1112 Other: Voiding Method Toilet Toilet Toilet # Voids 1 1 2 - Exam GENERAL EXAM: Alert, comfortable in no apparent distress. On room air. HEAD: Normocephalic. EYES: Normal reaction of pupils, equal size. NOSE: Clear with pink turbinates. THROAT: No erythema or exudates. NECK: No masses, no JVD. CHEST: No chest wall deformity. LUNGS: Diminished in the left lung crackles in the base. Diminished left lung. CVS: S1 and S2 normal with no audible murmur, regular rhythm. ABDOMEN: No hepatosplenomegaly, normal bowel sounds, no guarding or rigidity. SPINE: No scoliosis or deformity SKIN: No rashes CENTRAL NERVOUS SYSTEM: No focal deficits, tone is normal in all 4 extremities. EXTREMITIES: There is no peripheral edema. No clubbing, no cyanosis. Peripheral pulses are intact. - Labs CBC & Chem 7: 03/21/19 07:27 03/21/19 07:27 Labs: Abnormal Lab Results - Last 24 Hours (Table) 03/21/19 03/21/19 Range/Units 07:27 07:27 WBC 11.4 H (3.8-10.6) k/uL Neutrophils # 8.9 H (1.3-7.7) k/uL Sodium 132 L (137-145) mmol/L Chloride 94 L (98-107) mmol/L Microbiology - Last 24 Hours (Table) 03/19/19 12:45 Gram Stain - Final Bronchial Washings - Left Bronchial Washings Culture - Final 03/18/19 15:15 Gram Stain - Preliminary Pleural Fluid Body Fluid Culture - Preliminary Assessment and Plan Assessment: Impression: #1 Dyspnea secondary to large left hilar mass positive for squamous cell carcinoma. Computed tomography scan there revealed underlying emphysema, pulmonary hypertension as well as a large left hilar mass with contiguous mass extending into the left upper lobe invading the subcarinal aspect of the mediastinum, measures up to 7.3 cm encasing and narrowing the left main pulmonary artery and proximal lobe arterial branches the left mainstem bronchus with resulting complete left lung collapse. There is also noted moderate to large pleural effusion. Scattered pulmonary nodules on the right side as well. #2 Moderate to large left-sided pleural effusion secondary to above. Status post thoracentesis with 500 mL removed. Fluid analysis negative for malignancy. #3 Suspicious skull lesion at the vertex of the skull noted on bone scan, patient unable to tolerate MRI of the brain on 2 attempts. #4 Chronic obstructive pulmonary disease, FEV1 value of 49% of predicted. #5 50+ year pack per day smoking history, quit 2 years ago. #6 Hypertension. Plan: The patient was seen and evaluated by Dr. Boss. The patient is found to have squamous cell carcinoma of the lung. Suspicious skull lesion noted on bone scan. The patient has been unable to tolerate an MRI of the brain twice now. We will continue to follow and make further recommendations based on her clinical status. I, the cosigning physician, performed a history & physical examination of the patient. Lungs sounds diminished in the left lung. Maintaining good O2 saturations in the 90s on room air. I discussed the assessment and plan of care with my nurse practitioner, Gisele Das. I attest to the above note as dictated by her.
--- NOTE | 2019-03-21 14:28 | P.DS ---
Providers Date of admission: 03/17/19 18:16 Attending physician: Barbra Diaz Consults: 03/17/19 21:56 Consult Physician Routine Consulting Provider: Yannick Boss Consult Reason/Comments: lung ca Do you want consulting provider notified?: Yes 03/17/19 22:36 Consult Physician Routine Consulting Provider: Rustam Aldana Consult Reason/Comments: Lung mass Do you want consulting provider notified?: Yes, Notify in am Primary care physician: Stated None Hospital Course: Patient is admitted for left hilar mass left-sided pleural effusion and shortness of breath secondary to left-sided pleural effusion patient and the consistency pneumonia 500 mL of fluid and patient underwent bronchoscopy and biopsy. Patient shortness of breath resolved patient is clinically doing well now. Patient will undergo an MRI today to rule out any brain metastasis from her possible pulmonary malignancy. 03/21/2019 Patient's pathology is positive for invasive Smyers's, cell carcinoma of the lung patient has metastasis to bone with metastasis to skull.patient doesn't want to undergo MRI here is agreeable to undergo an MRI as an outpatient. Stenting was discussed with oncology. Patient will be discharged today. PHYSICAL EXAMINATION: GENERAL: The patient is alert and oriented x3, not in any acute distress. Well developed, well nourished. HEENT: Pupils are round and equally reacting to light. EOMI. No scleral icterus. No conjunctival pallor. Normocephalic, atraumatic. No pharyngeal erythema. No thyromegaly. CARDIOVASCULAR: S1 and S2 present. No murmurs, rubs, or gallops. PULMONARY: Chest is clear to auscultation, no wheezing or crackles. ABDOMEN: Soft, nontender, nondistended, normoactive bowel sounds. No palpable organomegaly. MUSCULOSKELETAL: No joint swelling or deformity. EXTREMITIES: No cyanosis, clubbing, or pedal edema. NEUROLOGICAL: Gross neurological examination did not reveal any focal deficits. SKIN: No rashes. Assessment and Plan Plan: Shortness of breath secondary to left-sided pleural effusion status post redness of 500 mL patient had a left hilar mass which which is positive for squamous cell carcinoma the lung squamous cell carcinoma the lung -COPD without any significant acute exacerbation FEV1 is 49% -Hypertension Plan - Discharge Summary Discharge Rx Participant: No New Discharge Prescriptions: New Budesonide-Formot 160-4.5 Mcg [Symbicort 160-4.5 Mcg Inhaler] 2 puff INHALATION BID #1 inhaler Continue Metoprolol Tartrate [Lopressor] 100 mg PO BID Tiotropium 18 Mcg/Puff [Spiriva] 1 puff INHALATION RT-DAILY Discontinued amLODIPine [Norvasc] 10 mg PO DAILY Valsartan/Hydrochlorothiazide [Diovan Hct 160-25 mg Tablet] 1 tab PO DAILY Discharge Medication List Metoprolol Tartrate [Lopressor] 100 mg PO BID 03/17/19 [History] Tiotropium 18 Mcg/Puff [Spiriva] 1 puff INHALATION RT-DAILY 03/17/19 [History] Budesonide-Formot 160-4.5 Mcg [Symbicort 160-4.5 Mcg Inhaler] 2 puff INHALATION BID #1 inhaler 03/21/19 [Rx] Follow up Appointment(s)/Referral(s): Rustam Aldana MD [STAFF PHYSICIAN] - 04/01/19 4:30 pm (at the [facility]. Apr 01 2019 at 4:30) Konstantin Larkin DO [Doctor of Osteopathic Medicine] - 04/02/19 10:15 am (At [facility]. April 02 at 10:15 am) Ambulatory/Diagnostic Orders: Basic Metabolic Panel [LAB.AMB] Time Frame: 3 Days, Location: None Selected Patient Instructions/Handouts: Budesonide/Formoterol (By breathing) Discharge Disposition: HOME SELF-CARE
== END 2019-03-21 15:48 | disposition home or self-care (01) | DRG 180 ==
LOC: 3NMEDONC 18:16
PROVIDERS: ADMIT Hospitalist; ATTEND Hospitalist
PROC: 0W9B3ZZ Drainage of Left Pleural Cavity, Percutaneous Approach (ICD-10-PCS; 2019-03-18)
PROC: 0BB78ZX Excision of Left Main Bronchus, Via Natural or Artificial Opening Endoscopic, Diagnostic (ICD-10-PCS; principal; 2019-03-19 12:00)
PROC: 0BD78ZX Extraction of Left Main Bronchus, Via Natural or Artificial Opening Endoscopic, Diagnostic (ICD-10-PCS; 2019-03-19 12:00)
DX: C34.02 Malignant neoplasm of left main bronchus (principal); J18.9 Pneumonia, unspecified organism; J98.19 Other pulmonary collapse; C79.51 Secondary malignant neoplasm of bone; E87.1 Hypo-osmolality and hyponatremia; J90 Pleural effusion, not elsewhere classified; I27.20 Pulmonary hypertension, unspecified; J43.9 Emphysema, unspecified; F41.9 Anxiety disorder, unspecified; I10 Essential (primary) hypertension; E66.9 Obesity, unspecified; Z68.39 Body mass index [BMI] 39.0-39.9, adult; Z87.01 Personal history of pneumonia (recurrent); Z87.891 Personal history of nicotine dependence; Z79.899 Other long term (current) drug therapy; Z88.2 Allergy status to sulfonamides
CPT/HCPCS: 31623; 31624; 31625; 71045; 74177; 76604; 78306; 80048; 80053; 83605; 83615; 84157; 85025; 87070; 87205; 88104; 88108; 88305; 88341; 88342; 89050; 93005; 94640

== ENCOUNTER → 2019-04-05 | Outpatient (CLI) | payer MEDICARE ==
--- NOTE | 2019-04-08 15:05 | PE ---
Nuclear medicine PET/CT HISTORY: Lung carcinoma, subsequent Patient received 9.7 mCi F-18 FDG intravenously in delayed scanning was performed from the skull base to the mid thighs. Localization and attenuation correction CT scan was performed. Correlation CT abdomen pelvis 03/18/2019, CT chest 03/17/2019, nuclear medicine bone scan 03/18/2019 Exam somewhat limited technically neck and CHEST: The left hemithorax is opacified. There is abnormal hypermetabolic uptake present wit hin the mediastinum somewhat encasing the left pulmonary artery and mainstem bronchus, probable posto bstructive atelectatic changes, there is a large left pleural effusion. The mass shows hypermetabolic uptake, SUV 16.2. In the left lower lobe there is also hypermetabolic uptake, SUV 7.7. Along the per icardium anteriorly there is probable lymph node, hypermetabolic uptake is present SUV 5.9. Lung the right heart border there is also focus of hypermetabolic uptake, SUV 5.3, possible lung nodule. ABDOMEN: Liver shows a focus of hypermetabolic uptake inferiorly in the right lobe, SUV 6.6. Smaller focus is present centrally within the liver, SUV 4.2. Possible right lobe focus towards the dome, SUV 5.3. Osseous structures: The right posterior ischium shows a focus of uptake, SUV 11.2. Posterior left salma um shows a small focus of uptake, SUV 3.9. The anterior right seventh rib shows a focal cortical irre gularity, associated hypermetabolic uptake is present, SUV is 8.7. In the right shoulder region the s capula is thought to show hypermetabolic uptake, SUV 7.6. Small focus along the subscapularis muscula ture also shows hypermetabolic uptake, SUV 16.8. IMPRESSION: Metastatic disease.
== END | disposition home or self-care (01) ==
LOC: RADPETMAIN 11:45
PROVIDERS: ATTEND Internal Medicine Hematology & Oncology
DX: C78.7 Secondary malignant neoplasm of liver and intrahepatic bile duct (principal); C79.51 Secondary malignant neoplasm of bone; C34.82 Malignant neoplasm of overlapping sites of left bronchus and lung
CPT/HCPCS: 78815; A9552

== ENCOUNTER → 2019-04-08 | Outpatient (CLI) | payer MEDICARE ==
[2019-04-08 13:45] LABS: Blood Urea Nitrogen 12 mg/dL (7-17)
--- NOTE | 2019-04-08 14:35 | CT ---
EXAMINATION TYPE: CT brain w con DATE OF EXAM: 04/08/2019 COMPARISON: Whole body bone scan March 18, 2019. HISTORY: Headaches. History of lung cancer. CT DLP: 1029.9 mGycm Automated exposure control for dose reduction was used. CONTRAST: CT scan of the head is performed with IV Contrast, patient injected with 100 mL of Isovue M300. FINDINGS: There is no abnormal enhancing mass or midline shift identified. Ventricular and sulcal prominence is identified. Some low-attenuation in the periventricular white matter is seen. Suspicious 1.7 cm lyti c lesion high right frontal lobe axial image 46 corresponds to area of radiotracer uptake on recent b one scan. The globes are intact and the visualized sinuses are clear. Vascular calcification distal i nternal carotid arteries is present bilaterally. IMPRESSION: No suspicious enhancing intraparenchymal masses. A 1.7 cm lytic focus high right frontal lobe corresponds to area of concern on bone scan, metastatic focus cannot be excluded. Background mil d to moderate diffuse cerebral atrophy and chronic small vessel ischemic change is appreciated
== END | disposition home or self-care (01) ==
LOC: RADCTMAIN 13:05
PROVIDERS: ATTEND Internal Medicine Hematology & Oncology
DX: G31.9 Degenerative disease of nervous system, unspecified (principal); I67.82 Cerebral ischemia; C34.82 Malignant neoplasm of overlapping sites of left bronchus and lung; R51 Headache; Z03.89 Encounter for observation for other suspected diseases and conditions ruled out
CPT/HCPCS: 82565; 84520; 70460; 36415; Q9967